=== PATIENT | male | born 1965 | race Caucasian/White ===

== ENCOUNTER 2019-07-25 10:11 | Inpatient (IN) | payer OTHER ==
[2019-07-25 10:33] VITALS: BMI 25.8
--- NOTE | 2019-07-25 11:22 | HP ---
"COWS - Scale Resting Pulse: 0= [place] 80 or Below Sweatin= Chills/Flushing Restless Observation: 3= Extraneous Movement Pupil Size: 1= Pupils >than Normal Bone or Joint Aches: 2= Severe Diffuse Aches Runny Nose/ Eye Tearin= Runny Nose/Eyes GI Upset > 30mins: 2= Nausea/Diarrhea Tremor Observation: 0= None Yawning Observation: 2= >3x During Session Anxiety or Irritability: 1=Feels Anxious/Irritable Goose Flesh Skin: 0=Smooth Skin COWS Score: 14 CIWA Score - Admission Criteria [facility]ASAS Guidelines: Admission for Medically Managed Detox: Requires at least one of the followin. CIWA greater than 12 2. Seizures within the past 24 hours 3. Delirium tremens within the past 24 hours 4. Hallucinations within the past 24 hours 5. Acute intervention needed for co occurring medical disorder 6. Acute intervention needed for co occurring psychiatric disorder 7. Severe withdrawal that cannot be handled at a lower level of care (continued vomiting, continued diarrhea, abnormal vital signs) requiring intravenous medication and/or fluids 8. Admission ROS S - HPI Allergies/Adverse Reactions: Allergies Allergy/AdvReac Type Severity Reaction Status Date / Time No Known Allergies Allergy Verified 07/25/19 10:28 History of Present Illness: Search Terms: roberth martinez, 1965 Search Date: 07/25/2019 11:18:00 AM This report was requested by: Radha Garza | Reference #: [id number] There are no results for the search terms that you entered. pt here requesting detox from heroin use , claims 4-5 bags/day via inhalation since age 17 , longest sobriety 12 years while living in [place] until March 2019 when he returned to [place] , relapsed , latest use yesterday morning . was in another detox 12 days ago , 20 years ago mmtp mdd 80 mg . denies si / hi pmhx : OA denies benzo use tobacco : 1 ppd Exam Limitations: No Limitations - Ebola screening Have you traveled outside of the country in the last 21 days: No Have you had contact with anyone from an Ebola affected area: No Do you have a fever: No - Review of Systems Constitutional: Loss of Appetite EENT: reports: Other (reading glasses) Respiratory: reports: No Symptoms reported Cardiac: reports: No Symptoms Reported GI: reports: See HPI : reports: No Symptoms Reported Musculoskeletal: reports: Joint Pain (janette knees OA , uses cane for ambulation) Integumentary: reports: No Symptoms Reported Neuro: reports: Unsteady Gait Endocrine: reports: No Symptoms Reported Psychiatric: reports: Orientated x3, Agitated, Anxious Patient History - Smoking Cessation Smoking history: Current every day smoker Have you smoked in the past 12 months: Yes Hx Chewing Tobacco Use: No Initiated information on smoking cessation: Yes 'Breaking Loose' booklet given: 07/25/19 - Substances abused Heroin Substance route: Inhalation Frequency: Daily Amount used: 4-5 Age of first use: 17 Date of last use: 07/24/19 Marijuana/Hashish Substance route: Smoking Frequency: 1-2 times per week Amount used: 2 joints Age of first use: 15 Date of last use: 07/23/19 Admission Physical Exam BHS - Vital Signs Vital Signs: Vital Signs - 24 hr 07/25/19 10:27 Temperature 97.1 F L Pulse Rate 70 Respiratory 20 Rate Blood Pressure 160/106 H - Physical General Appearance: Yes: Moderate Distress, Anxious HEENTM: Yes: EOMI, Hearing grossly Normal, Normocephalic, Normal Voice, Nasal Congestion, Rhinorrhea Respiratory: Yes: Chest Non-Tender, Lungs Clear, Normal Breath Sounds, No Respiratory Distress, No Accessory Muscle Use Neck: Yes: No masses,lesions,Nodules, Trachea in good position Cardiology: Yes: Regular Rhythm, Regular Rate, S1, S2 Abdominal: Yes: Non Tender, Soft Musculoskeletal: Yes: Joint Stiffness (janette knees) Extremities: Yes: Swelling (janette knees mild edema , stiffness), Other (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) Neurological: Yes: Fully Oriented, Alert, Motor Strength 5/5 Integumentary: Yes: Warm - Diagnostic (1) Opioid dependence Current Visit: Yes Status: Acute Qualifiers: Substance use status: in withdrawal Qualified Code(s): F11.23 - Opioid dependence with withdrawal Breathalyzer - Breathalyzer Breathalyzer: 0 Urine Drug Screen - Test Device Lot number: [id number] Expiration date: 03/01/21 - Control Is test valid?: Yes - Results Drug screen NEGATIVE: No Urine drug screen results: THC-Marijuana, FEN-Fentanyl, MOP-Opiates, BZO- Benzodiazepines Inpatient Rehab Admission - Rehab Decision to Admit Inpatient rehab admission?: No"
[2019-07-25] MEDS ORDERED: MAGNESIUM CITRATE 300 ML BOTTLE PO PRN (12:16)
[2019-07-25] MEDS ORDERED: ACETAMINOPHEN 325 MG TABLET (FP) PO PRN ×2 (12:16)
[2019-07-25] MEDS ORDERED: MENTHOL/PHENOL 1 EACH UD MM PRN (12:16)
[2019-07-25] MEDS ORDERED: MAGNESIUM HYDROX 2400MG/30ML ORAL SUSPENSION 30 ML CUP PO PRN (12:16)
[2019-07-25] MEDS ORDERED: IBUPROFEN 400 MG TABLET (FP) PO PRN (12:16)
[2019-07-25] MEDS ORDERED: MELATONIN 5 MG TABLETS PO PRN (12:16)
[2019-07-25] MEDS ORDERED: hydrOXYzine PAMOATE 25 MG CAPSULE (FP) PO PRN (12:16)
[2019-07-25] MEDS ORDERED: MAG HYDROX/AL HYDROX/SIMETH 30 ML UNIT-DOSE CUP PO PRN (12:16)
[2019-07-25] MEDS ORDERED: BISMUTH SUBSALICYLATE 262 MG/15 ML BTL PO PRN (12:16)
[2019-07-25] MEDS ORDERED: METHADONE HCL 10 MG TABLET (FOR DETOX USE ONLY) PO ONE (12:17)
[2019-07-25] MEDS: METHOCARBAMOL 500 MG TABLET PO PRN ×2 (13:08→22:21)
[2019-07-25] MEDS: cloNIDine HCL 0.1 MG TABLET PO PRN ×2 (18:20→22:21)
[2019-07-25] MEDS: THIAMINE HCL 100 MG TABLET (FP) PO SCH (22:18)
[2019-07-26] MEDS: cloNIDine HCL 0.1 MG TABLET PO PRN (07:25)
[2019-07-26] MEDS ORDERED: METHADONE HCL 10 MG TABLET (FOR DETOX USE ONLY) PO ONE (08:36)
[2019-07-26] MEDS ORDERED: cloNIDine HCL 0.1 MG TABLET PO PRN (08:36)
--- NOTE | 2019-07-26 08:48 | PN ---
BHS COWS - Scale Resting Pulse: 0= [place] 80 or Below Sweatin= Chills/Flushing Restless Observation: 1= Difficult to Sit Still Pupil Size: 1= Pupils >than Normal Bone or Joint Aches: 2= Severe Diffuse Aches Runny Nose/ Eye Tearin= Nasal Congestion GI Upset > 30mins: 2= Nausea/Diarrhea Tremor Observation of Outstretched Hands: 2= Slight Tremor Visible Yawning Observation: 2= >3x During Session Anxiety or Irritability: 2=Irritable/Anxious Goose Flesh Skin: 0=Smooth Skin COWS Score: 14 BHS Progress Note (SOAP) Subjective: alert,irritable,anxiou,nauyseas,interrupted sleep,tremor,pain in the body and back Objective: 07/26/19 08:46 Vital Signs Temperature 97.2 F L 07/26/19 06:00 Pulse Rate 60 07/26/19 06:00 Respiratory Rate 18 07/26/19 06:00 Blood Pressure 141/96 07/26/19 06:00 O2 Sat by Pulse Oximetry (%) labs pending Assessment: 07/26/19 08:46 withdrawal symptom Plan: continue detox methadone regimen,medications adjusted,severe withdrawal symptom
[2019-07-26] MEDS: PRENATAL VITAMINS W/ FOLIC ACID TABLET (FP) PO SCH (09:42)
[2019-07-26] MEDS ORDERED: METHADONE HCL 5 MG TABLET (FOR DETOX USE ONLY) PO ONE (10:00)
[2019-07-26 10:37] LABS: HEMATOCRIT 42.7 % (35.4-49); HEMOGLOBIN 14.6 GM/dL (11.7-16.9); MCH 30.6 pg (25.7-33.7); MCHC 34.1 g/dl (32.0-35.9); MEAN CELL VOLUME 89.8 fl (80-96); MEAN PLT VOLUME 9.3 fl (7.5-11.1); PLATELET COUNT 235 K/MM3 (134-434); RBC 4.76 M/mm3 (4.00-5.60); RDW 13.6 % (11.9-15.9); WHITE BLOOD COUNT 8.1 K/mm3 (4.0-10.0)
[2019-07-26 10:53] LABS: ALBUMIN 3.8 g/dl (3.4-5.0); BILIRUBIN,TOTAL 0.4 mg/dL (0.2-1); CALCIUM 9.1 mg/dL (8.5-10.1); CREATININE 0.7 mg/dL (0.55-1.3); POTASSIUM 3.8 mmol/L (3.5-5.1); TOT PROT 7.1 g/dl (6.4-8.2)
[2019-07-26] MEDS: diazePAM 5 MG TABLET PO PRN ×2 (18:20→22:29)
[2019-07-26] MEDS: THIAMINE HCL 100 MG TABLET (FP) PO SCH (22:29)
[2019-07-27] MEDS ORDERED: METHADONE HCL 10 MG TABLET (FOR DETOX USE ONLY) ONE (09:53)
[2019-07-27] MEDS ORDERED: METHADONE HCL 5 MG TABLET (FOR DETOX USE ONLY) ONE (09:53)
[2019-07-27] MEDS ORDERED: METHADONE (DETOX) 20 MG, METHADONE (DETOX) 5 MG PO ONE (10:00)
[2019-07-27] MEDS ORDERED: METHADONE HCL 10 MG TABLET (FOR DETOX USE ONLY) PO ONE (10:00)
[2019-07-27] MEDS: PRENATAL VITAMINS W/ FOLIC ACID TABLET (FP) PO SCH (10:46)
[2019-07-27] MEDS: diazePAM 5 MG TABLET PO PRN ×2 (10:48→23:35)
--- NOTE | 2019-07-27 11:49 | PN ---
S COWS - Scale Resting Pulse: 0= [place] 80 or Below Sweatin= Chills/Flushing Restless Observation: 1= Difficult to Sit Still Pupil Size: 0= Normal to Room Light Bone or Joint Aches: 2= Severe Diffuse Aches Runny Nose/ Eye Tearin= None GI Upset > 30mins: 0= None Tremor Observation of Outstretched Hands: 2= Slight Tremor Visible Yawning Observation: 1= 1-2x During Session Anxiety or Irritability: 2=Irritable/Anxious Goose Flesh Skin: 0=Smooth Skin COWS Score: 9 S Progress Note (SOAP) Subjective: c/o headache, sweats, anxiety, and irritability. Objective: 07/27/19 11:52 Vital Signs 07/27/19 07/27/19 06:27 08:00 Temperature 97.5 F L 97.7 F Pulse Rate 67 74 Respiratory 18 16 Rate Blood Pressure 151/89 157/105 H Lab Results WBC 8.1 K/mm3 (4.0-10.0) 07/26/19 07:20 RBC 4.76 M/mm3 (4.00-5.60) 07/26/19 07:20 Hgb 14.6 GM/dL (11.7-16.9) 07/26/19 07:20 Hct 42.7 % (35.4-49) 07/26/19 07:20 MCV 89.8 fl (80-96) 07/26/19 07:20 MCHC 34.1 g/dl (32.0-35.9) 07/26/19 07:20 RDW 13.6 % (11.9-15.9) 07/26/19 07:20 Plt Count 235 K/MM3 (134-434) 07/26/19 07:20 Sodium 139 mmol/L (136-145) 07/26/19 07:20 Potassium 3.8 mmol/L (3.5-5.1) 07/26/19 07:20 Chloride 100 mmol/L (98-107) 07/26/19 07:20 Carbon Dioxide 30 mmol/L (21-32) 07/26/19 07:20 Anion Gap 8 MMOL/L (8-16) 07/26/19 07:20 BUN 18.0 mg/dL (7-18) 07/26/19 07:20 Creatinine 0.7 mg/dL (0.55-1.3) 07/26/19 07:20 Random Glucose 78 mg/dL (74-106) 07/26/19 07:20 Calcium 9.1 mg/dL (8.5-10.1) 07/26/19 07:20 Labs noted. Assessment: 07/27/19 11:54 AOX3, in no acute respiratory distress. Full ROM, ambulating in the unit. withdrawal symptoms. Plan: continue detox.
[2019-07-27] MEDS: THIAMINE HCL 100 MG TABLET (FP) PO SCH (23:04)
[2019-07-28] MEDS ORDERED: METHADONE HCL 5 MG TABLET (FOR DETOX USE ONLY) PO ONE (06:00)
[2019-07-28] MEDS ORDERED: METHADONE HCL 10 MG TABLET (FOR DETOX USE ONLY) PO ONE (10:00)
[2019-07-28] MEDS: PRENATAL VITAMINS W/ FOLIC ACID TABLET (FP) PO SCH (10:40)
[2019-07-28] MEDS: diazePAM 5 MG TABLET PO PRN ×2 (10:40→21:27)
--- NOTE | 2019-07-28 13:52 | PN ---
BHS COWS - Scale Resting Pulse: 0= [place] 80 or Below Sweatin= Chills/Flushing Restless Observation: 1= Difficult to Sit Still Pupil Size: 0= Normal to Room Light Bone or Joint Aches: 1= Mild Discomfort Runny Nose/ Eye Tearin= Runny Nose/Eyes GI Upset > 30mins: 2= Nausea/Diarrhea Tremor Observation of Outstretched Hands: 2= Slight Tremor Visible Yawning Observation: 0= None Anxiety or Irritability: 1=Feels Anxious/Irritable Goose Flesh Skin: 0=Smooth Skin COWS Score: 10 BHS Progress Note (SOAP) Subjective: Back pain, diarrhea, interrupted sleep Objective: 07/28/19 13:48 Last Vital Signs Temp Pulse Resp BP Pulse Ox 97.9 F 78 16 148/83 07/28/19 09:46 07/28/19 09:46 07/28/19 09:46 07/28/19 09:46 Elevated b/p: denies htn (on clonidine prn) Laboratory Tests 07/26/19 07/26/19 07/26/19 07:20 07:20 07:20 WBC 8.1 RBC 4.76 Hgb 14.6 Hct 42.7 MCV 89.8 MCH 30.6 MCHC 34.1 RDW 13.6 Plt Count 235 MPV 9.3 Sodium 139 Potassium 3.8 Chloride 100 Carbon Dioxide 30 Anion Gap 8 BUN 18.0 Creatinine 0.7 Est GFR (CKD-EPI)AfAm 124.00 Est GFR (CKD-EPI)NonAf 106.99 Random Glucose 78 Calcium 9.1 Total Bilirubin 0.4 AST 15 ALT 25 Alkaline Phosphatase 112 Total Protein 7.1 Albumin 3.8 RPR Titer Nonreactive Labs reviewed Assessment: 07/28/19 13:52 Withdrawal sxs Noted with elevated b/p Plan: Continue detox Encouraged PO water intake Elevated b/p: most likely due to withdrawal as patient denies any h/o htn, change clonidine 0.1mg to q8hr prn if b/p > 140/90, monitor b/p
[2019-07-28] MEDS: THIAMINE HCL 100 MG TABLET (FP) PO SCH (21:27)
[2019-07-28] MEDS: cloNIDine HCL 0.1 MG TABLET PO PRN (21:28)
[2019-07-29] MEDS ORDERED: METHADONE HCL 10 MG TABLET (FOR DETOX USE ONLY) ONE (08:33)
[2019-07-29] MEDS ORDERED: METHADONE HCL 5 MG TABLET (FOR DETOX USE ONLY) ONE (08:33)
[2019-07-29 09:41] VITALS: BP 151/96; PULSE 81; TEMP 97.3
[2019-07-29] MEDS ORDERED: METHADONE (DETOX) 10 MG, METHADONE (DETOX) 5 MG PO ONE (10:00)
[2019-07-29] MEDS: cloNIDine HCL 0.1 MG TABLET PO PRN (10:28)
[2019-07-29] MEDS: PRENATAL VITAMINS W/ FOLIC ACID TABLET (FP) PO SCH (10:54)
--- NOTE | 2019-07-29 12:04 | PN ---
S CIWA - CIWA Score Nausea/Vomitin-No Nausea/No Vomiting Muscle Tremors: 1-None Visible, but [place] Anxiety: 1-Mildly Anxious Agitation: 1-Slight > Activity Paroxysmal Sweats: No Perspiration Orientation: 0-Oriented Tacttile Disturbances: 0-None Auditory Disturbances: 0-None Visual Disturbances: 0-None Headache: 1-Very Mild CIWA-Ar Total Score: 4 BHS Progress Note (SOAP) Subjective: alert,no complaint Objective: 07/29/19 12:03 Vital Signs Temperature 97.3 F L 07/29/19 09:41 Pulse Rate 81 07/29/19 09:41 Respiratory Rate 20 07/29/19 09:41 Blood Pressure 151/96 07/29/19 09:41 O2 Sat by Pulse Oximetry (%) Assessment: 07/29/19 12:03 patient is feeling well,no withdrawal symptom Plan: stable for discharge today,follow up with after care program as arrangement
--- NOTE | 2019-07-29 12:10 | DS ---
[facility] Detox Discharge Summary Admission Date: 07/25/19 Discharge Date: 07/29/19 - History Present History: Opioid Dependence Additional Comments: follow up with after care program as arrangement Pertinent Past History: arthritis of left knee cane ambulation - Physical Exam Results Vital Signs: Vital Signs Temperature 97.3 F L 07/29/19 09:41 Pulse Rate 81 07/29/19 09:41 Respiratory Rate 20 07/29/19 09:41 Blood Pressure 151/96 07/29/19 09:41 O2 Sat by Pulse Oximetry (%) Pertinent Admission Physical Exam Findings: withdrawal signs and symptom Laboratory Last Values WBC 8.1 K/mm3 (4.0-10.0) 07/26/19 07:20 RBC 4.76 M/mm3 (4.00-5.60) 07/26/19 07:20 Hgb 14.6 GM/dL (11.7-16.9) 07/26/19 07:20 Hct 42.7 % (35.4-49) 07/26/19 07:20 MCV 89.8 fl (80-96) 07/26/19 07:20 MCH 30.6 pg (25.7-33.7) 07/26/19 07:20 MCHC 34.1 g/dl (32.0-35.9) 07/26/19 07:20 RDW 13.6 % (11.9-15.9) 07/26/19 07:20 Plt Count 235 K/MM3 (134-434) 07/26/19 07:20 MPV 9.3 fl (7.5-11.1) 07/26/19 07:20 Sodium 139 mmol/L (136-145) 07/26/19 07:20 Potassium 3.8 mmol/L (3.5-5.1) 07/26/19 07:20 Chloride 100 mmol/L (98-107) 07/26/19 07:20 Carbon Dioxide 30 mmol/L (21-32) 07/26/19 07:20 Anion Gap 8 MMOL/L (8-16) 07/26/19 07:20 BUN 18.0 mg/dL (7-18) 07/26/19 07:20 Creatinine 0.7 mg/dL (0.55-1.3) 07/26/19 07:20 Est GFR (CKD-EPI)AfAm 124.00 07/26/19 07:20 Est GFR (CKD-EPI)NonAf 106.99 07/26/19 07:20 Random Glucose 78 mg/dL (74-106) 07/26/19 07:20 Calcium 9.1 mg/dL (8.5-10.1) 07/26/19 07:20 Total Bilirubin 0.4 mg/dL (0.2-1) 07/26/19 07:20 AST 15 U/L (15-37) 07/26/19 07:20 ALT 25 U/L (13-61) 07/26/19 07:20 Alkaline Phosphatase 112 U/L (45-117) 07/26/19 07:20 Total Protein 7.1 g/dl (6.4-8.2) 07/26/19 07:20 Albumin 3.8 g/dl (3.4-5.0) 07/26/19 07:20 RPR Titer Nonreactive (NONREACTIVE) 07/26/19 07:20 - Treatment Hospital Course: Detox Protocol Followed, Detoxed Safely, Responded well, Discharged Condition Good Patient has Accepted a Rehab Referral to: declined - Medication Discharge Medications: Ambulatory Orders NK [No Known Home Medication] 07/25/19 - Diagnosis (1) Opioid dependence with withdrawal Current Visit: Yes Status: Acute (2) Arthritis of left knee Current Visit: Yes Status: Acute (3) Use of cane as ambulatory aid Current Visit: Yes Status: Acute - AMA Did Patient Leave Against Medical Advice: No
[2019-07-30] MEDS ORDERED: METHADONE HCL 10 MG TABLET (FOR DETOX USE ONLY) PO ONE (10:00)
[2019-07-31] MEDS ORDERED: METHADONE HCL 5 MG TABLET (FOR DETOX USE ONLY) PO ONE (06:00)
== END 2019-07-29 12:23 | disposition home or self-care (01) | DRG 773 ==
LOC: YASAS 10:11 → Y6N 11:36
PROVIDERS: ADMIT Allergy & Immunology; ATTEND Allergy & Immunology
PROC: HZ2ZZZZ Detoxification Services for Substance Abuse Treatment (ICD-10-PCS; principal; 2019-07-25)
DX: F11.23 Opioid dependence with withdrawal (principal); F17.210 Nicotine dependence, cigarettes, uncomplicated; M17.12 Unilateral primary osteoarthritis, left knee; R03.0 Elevated blood-pressure reading, without diagnosis of hypertension; R26.2 Difficulty in walking, not elsewhere classified; Z99.89 Dependence on other enabling machines and devices; Z59.0 Homelessness
CPT/HCPCS: 36415; 80053; 85027; 86593; J0735